=== PATIENT | female | born 1955 | race Caucasian/White ===

== ENCOUNTER 2025-06-12 12:24 | Emergency (ER) | payer MEDICARE, BC, SELFPAY ==
[2025-06-12 12:30] VITALS: BP 119/61
[2025-06-12 13:10] LABS: Hematocrit 33.0 % (37.0-47.0); Hemoglobin 10.8 g/dL (12.0-16.0); Mean Corp Hgb Conc. 32.7 g/dL (33.0-37.0); Mean Corpuscular Volume 79.1 fL (81.0-99.0); Red Cell Dist. Width 14.5 % (11.5-14.5)
[2025-06-12 13:18] LABS: ALT (SGPT) 12 U/L (0-35); AST (SGOT) 18 U/L (14-36); Albumin 4.1 g/dl (3.5-5.0); Alkaline Phosphatase 86 U/L (38-126); Blood Urea Nitrogen 8 mg/dl (7-17); Calcium 8.6 mg/dl (8.4-10.2); Carbon Dioxide 23 mmol/L (22-30); Chloride 95 mmol/L (98-107); Glucose 107 mg/dl (70-99); Lipase 28 U/L (23-300); Potassium 3.4 mmol/L (3.5-5.1); Sodium 128 mmol/L (135-145); Total Protein 7.7 g/dl (6.3-8.2); eGFR > 60.00
[2025-06-12 14:08] LABS: Platelet Count 202 10^3/uL (130-400)
--- NOTE | 2025-06-12 16:16 | ED.GENMED ---
History of Present Illness
General
Chief Complaint: Abdominal Symptoms
Time Seen by Provider: 06/12/25 16:16
History of Present Illness
History of Present Illness:
FOCUSED PAST MEDICAL HISTORY
- Seizures, COPD, breast cancer, diabetes
REVIEW OF OLD RECORDS
- No old records available for review in [facility]
Note:
CHIEF COMPLAINT(S)
Diarrhea with recent onset of rectal bleeding and elevated white blood cell count.
HISTORY OF PRESENT ILLNESS
The patient is a 70-year-old female who began experiencing diarrhea on Wednesday, which is approximately two days ago. She reports having rectal bleeding as of this morning. The patient denies recent use of antibiotics. She sought care at an urgent
care center today, where her white blood cell count was recorded at 27,000 per �L. The patient describes feeling generally weak, and she reports nausea without episodes of vomiting. She has had minimal oral intake, consisting of only six pieces of
toast over the past three days. The patient also reports low-grade fever, with a recent temperature measurement of 101�F. During the interview, she denies significant abdominal pain but reports ongoing lower abdominal discomfort, which she refers to
as a hernia.
PHYSICAL EXAM
- General: Alert, oriented, and in no acute distress.
- Skin: Warm and dry.
- Head: Normocephalic and atraumatic.
- Neck: Supple with the trachea midline.
- Eyes, Ears, Nose, Mouth, and Throat: Oral mucosa moist.
- Cardiovascular: Normal peripheral perfusion with no edema.
- Respiratory: Respirations are non-labored.
- Gastrointestinal: Abdomen is non-distended; reports of lower abdominal discomfort.
- Back: Normal range of motion and alignment.
- Musculoskeletal: Normal range of motion and strength.
- Neurological: Alert and oriented to person, place, time, and situation, with no focal neurological deficit observed.
- Psychiatric: Cooperative with an appropriate mood and affect.
PROBLEM LIST
- Acute:
- Diarrhea with rectal bleeding
- Elevated white blood cell count
- Fever
- Nausea
- Weakness
- Lower abdominal discomfort potentially related to hernia
PLAN
- Administer intravenous fluids for rehydration.
- Consider abdominal computed tomography scan to evaluate for underlying causes of high white blood cell count and abdominal discomfort.
- Monitor vital signs and symptoms, particularly signs of sepsis.
- Follow up on fever and symptoms progression.
DIFFERENTIAL DIAGNOSIS
The Differential Diagnosis includes, in no particular order and is not limited to:
1. Gastroenteritis (bacterial or viral)
2. Clostridioides difficile infection
3. Diverticulitis
4. Inflammatory bowel disease
5. Colorectal cancer
6. Bowel obstruction
7. Hernia complications (e.g., incarceration or strangulation)
8. Gastrointestinal bleeding due to other causes (e.g., peptic ulcer)
9. Sepsis secondary to bacterial infection
10. Ischemic bowel disease
RADIOLOGY
- Extensive stranding noted in the sigmoid colon
LABS
- White count 22.8, hemoglobin 10.8, sodium 128, potassium 3.4, creatinine 0.8, bicarb normal
SUMMARY OF ENCOUNTER
The patient was seen in the emergency department for recent onset diarrhea, worsened with rectal bleeding, and an elevated white blood cell count. The patients CT imaging indicated significant inflammation in the colon consistent with colitis.
Despite a high white blood cell count, the patient reports no pain and feels well enough to go home. IV fluids were administered for rehydration. Initially, IV antibiotics were considered, but the patient opted for outpatient oral antibiotics after
discussion.
DISPOSITION
Discharge.
ASSESSMENT
The patient is likely experiencing colitis, potentially due to a viral cause or bacterial infection, given the inflammation on CT and leukocytosis.
EMERGENCY TREATMENTS ADMINISTERED
IV fluids for rehydration.
PLAN
Administer IV fluids. Provide a prescription for oral antibiotics, like metronidazole, for outpatient management. The patient was instructed to return if symptoms worsen.
INDEPENDENT REVIEW OF LABS AND INTERPRETATION OF TESTS
My independent review of CBC shows leukocytosis with a white blood cell count of 22,000 per �L.
My independent interpretation of the CT scan reveals significant inflammation in the lower colon, consistent with colitis, without additional complications.
PATIENT EDUCATION AND COUNSELING
The patient was informed about the colitis diagnosis, its possible causes, and the management plan involving antibiotic therapy. The potential need to return to the hospital if symptoms worsen was emphasized.
FOLLOW-UP INSTRUCTIONS
The patient should follow up with their primary care provider or return to the emergency department if their symptoms worsen.
MEDICATION RECONCILIATION
A prescription for metronidazole was discussed for outpatient treatment of colitis.
MEDICAL DECISION MAKING
- Number and Complexity of Problems Addressed: Acute colitis potentially due to infection, and elevated white blood cell count.
- Data:
- Category 1: My independent interpretation of the CT scan shows inflammation indicative of colitis. Lab review of CBC indicates leukocytosis.
- Category 3: Discussed management options with the patient, opting for outpatient treatment.
- Risk: Consideration of admission was made due to the elevated white blood cell count and CT findings. The decision to manage the patient as an outpatient was made based on symptom improvement and patient preference.
DIAGNOSIS
Colitis
UPDATE
- Marked leukocytosis and extensive sigmoid colitis noted
- Offered and considered admission however the patient feels markedly improved and is eager to go home
- No tenderness on repeat examination prior to discharge
- Penicillin allergy, will start Cipro in case this could be infectious
Phy Exam
Physical Exam
Physical Exam:
See HPI
Sepsis
Sepsis Screening
Sepsis Assessment: Sepsis Ruled Out
Sepsis Screen
Sepsis Screen: Sepsis Ruled Out
Date: 06/12/25
Time: 20:20
Course
Orders/Labs/Results
Orders:
Orders
06/12/25 12:50
Complete Blood Count/With Diff Urgent
Comprehensive Metabolic Panel Urgent
Lactic Acid Urgent
Lipase Urgent
06/12/25 16:33
0.9% Sodium Chloride 1000 ml [Nss] 1,000 ml IV BOLUS
Acetaminophen [Tylenol] 1,000 mg PO NOW STA
06/12/25 16:34
CT Abd/pelvis W Iv Cont Urgent
Comment:
Reason For Exam: WBC 22, diarrhea; lower abd pain
06/12/25 17:44
Blood Culture Urgent
LUIZA Source: Blood/Venous
Specimen Description:
06/12/25 19:33
Ciprofloxacin HCl [Cipro] 500 mg PO NOW STA
Abnormal Lab Results
06/12/25
12:50
WBC 22.8 H 10^3/uL
(4.8-10.8)
RBC 4.17 L 10^6/uL
(4.20-5.40)
Hgb 10.8 L g/dL
(12.0-16.0)
Hct 33.0 L %
(37.0-47.0)
MCV 79.1 L fL
(81.0-99.0)
MCH 25.9 L pg
(27.0-31.0)
MCHC 32.7 L g/dL
(33.0-37.0)
Abs Immat Gran (auto) 0.2 H 10^3/uL
(0-0.05)
Absolute Neuts (auto) 18.6 H 10^3/uL
(1.4-6.5)
Absolute Monos (auto) 2.3 H 10^3/uL
(0.1-0.6)
Immature Gran % 0.7 H %
(0-0.5)
Neutrophils % 81.2 H %
(42.2-75.2)
Lymphocytes % 7.3 L %
(20.5-51.1)
Monocytes % 10.1 H %
(1.7-9.3)
Sodium 128 L mmol/L
(135-145)
Potassium 3.4 L mmol/L
(3.5-5.1)
Chloride 95 L mmol/L
(98-107)
Glucose 107 H mg/dl
(70-99)
06/12/25 12:50
06/12/25 12:50
Vital Signs
Initial and Last Documented VS:
Initial Vital Signs
Pulse Resp BP Pulse Ox
99 20 119/61 96
06/12/25 12:30 06/12/25 12:30 06/12/25 12:30 06/12/25 12:30
Last Documented Vital Signs
Temp Pulse Resp BP Pulse Ox
37.7 C 90 18 109/53 95
06/12/25 18:29 06/12/25 18:29 06/12/25 18:29 06/12/25 18:29 06/12/25 18:29
*Pulse Oximetry
SaO2: 96
Oxygen Mode of Delivery: Room air
Patient hypoxic: no
*Critical Care Note
Total Time (30-74mins, 75-104mins- exclusive of procedures): Not Applicable
ED Attending Note
-
Portions of this chart may have been created with voice recognition software.� Occasional wrong word or��sound alike� substitutions may have occurred due to the inherent limitations of voice recognition software.
Discharge Plan
Departure
Patient Disposition: Home (Routine Discharge)
Date of Disposition: 06/12/25
Time of Disposition: 19:15
Patient with high blood pressure during this ER visit?: Yes
Discharge Problem:
Colitis
Instructions: Dehydration, Adult (DC), Colitis (DC)
Prescriptions:
New
ciprofloxacin HCl 500 mg tablet
500 mg PO BID Qty: 14 0RF
Referrals:
Chester Andino DO [Family Provider, Family Practice]
Activity Restrictions/Additional Instructions:
CAT scan shows extensive sigmoid colitis and your white blood cell count is high at 22,000. Return if worse or other concerns. We did give you IV fluids. I also sent a prescription for Cipro to your pharmacy. Follow-up with your primary care
doctor as well.
Interventions
Interventions:
*General Assessment Last Done: 06/12/25 17:35
*Neglect/Abuse Screening Last Done: 06/12/25 12:30
*ED COVID-19 Vaccine History Last Done: 06/12/25 17:35
*ED Influenza Vaccine History Last Done: 06/12/25 17:35
[facility] Fall Risk Assessment Tool Last Done: 06/12/25 17:35
*Risk Screen - Suicide (C-SSRS) Last Done: 06/12/25 12:30
*Nursing Disposition Last Done: 06/12/25 20:02
DL-Tptvwq-Ihdwxyeaai Assessment Last Done: 06/12/25 17:35
Discharge Date and Time
Discharge Date/Time: 06/12/25 20:02
Print Language: EQUATORIAL GUINEAN
[2025-06-12 17:00] VITALS: BP 123/52
[2025-06-12] MEDS: TYLENOL 1000 MG PO (17:03)
[2025-06-12 17:11] LABS: Nucleated Red Blood Cells % 0 %
[2025-06-12] MEDS: NSS 1000 IV (17:34)
[2025-06-12 17:38] VITALS: BMI 39.6
[2025-06-12 18:29] VITALS: BP 109/53
[2025-06-12] MEDS: CIPRO 500 MG PO (19:43)
== END 2025-06-12 20:02 | disposition home or self-care (01) ==
LOC: EMR 12:24
PROVIDERS: Emergency Medicine; EMERGENCY PHYSICIAN Emergency Medicine; FAMILY PHYSICIAN Family Medicine; OTHER PHYSICIAN Surgery Surgical Oncology
DX: K52.9 Noninfective gastroenteritis and colitis, unspecified (principal); R03.0 Elevated blood-pressure reading, without diagnosis of hypertension; E11.9 Type 2 diabetes mellitus without complications; J44.9 Chronic obstructive pulmonary disease, unspecified; Z79.84 Long term (current) use of oral hypoglycemic drugs; Z85.3 Personal history of malignant neoplasm of breast; Z88.0 Allergy status to penicillin
CPT/HCPCS: 99284; 96360; 96361; 74177; 80053; 83605; 83690; 85025; 87040; Q9967